=== PATIENT | female | born 2000 | race Caucasian/White ===

== ENCOUNTER 2021-08-18 09:25 | Emergency (ER) | payer OTHER ==
[~2021-08-18] VITALS: Ht 157.5 cm; Wt 47.6 kg
[2021-08-18 09:33] VITALS: BP 128/69
[2021-08-18] MEDS ORDERED: IBUP600T27 PO (09:59)
[2021-08-18] MEDS ORDERED: CLIN300C8 PO (09:59)
[2021-08-18] MEDS ORDERED: IBUPROFEN 600 MG TAB PO ONE (10:00)
== END 2021-08-18 10:14 | disposition home or self-care (01) ==
LOC: ER 09:25
DX: K02.9 Dental caries, unspecified (principal); Z79.1 Long term (current) use of non-steroidal anti-inflammatories (NSAID); Z79.2 Long term (current) use of antibiotics; Z88.1 Allergy status to other antibiotic agents